=== PATIENT | male | born 1960 | race Caucasian/White ===

== ENCOUNTER 2017-03-01 06:31 | Day surgery (SDC) | payer BC ==
[2017-02-27 13:18] VITALS: BMI 31.1
[~2017-03-01 06:31] MED LIST: LACTATED RINGERS 1,000 ML IV SCH; SODIUM CHLORIDE 0.9% 1,000 ML IV SCH
[2017-03-01 06:52] VITALS: TEMP 97.8
[2017-03-01] MEDS ORDERED: MIDAZOLAM 2 MG/2 ML VIAL ONE (07:29)
[2017-03-01] MEDS ORDERED: LIDOCAINE 1% INJ 10MG/ML (20 ML MDV) ONE (07:29)
[2017-03-01] MEDS ORDERED: PROPOFOL 10 MG/ML 20 ML VIAL IV ONE (07:29)
[2017-03-01] MEDS ORDERED: BENZOCAINE SPRAY 1 CAN MUCOUS MEM ONE (07:32)
[2017-03-01] MEDS ORDERED: SODIUM CHLORIDE 0.9% 1,000 ML IV SCH (08:00)
[2017-03-01 08:46] VITALS: RESP 18
[2017-03-01] MEDS ORDERED: AMIODARONE 200 MG TAB PO STA (08:57)
[2017-03-01] MEDS ORDERED: AMIODARONE 200 MG TAB PO SCH (09:00)
[2017-03-01 09:28] VITALS: BP 110/60; PULSE 98
--- NOTE | 2017-03-01 10:52 | ECHOT ---
TRANSESOPHAGEAL ECHOCARDIOGRAM TRANSESOPHAGEAL ECHOCARDIOGRAM: INDICATION: Chronic atrial fibrillation. After obtaining informed consent, transesophageal echocardiogram was performed in left lateral position using an Omni plane probe. Local and IV sedation were obtained by the clinical esthetician. Patient tolerated the procedure well without any obvious immediate complications. FINDINGS: 1. There is no intracardiac thrombus within the left atrial appendage, left atrium, right atrium, or left ventricle. 2. Left ventricle appears mildly enlarged with diffuse global hypokinesis with severe LV dysfunction. 3. Left atrium appears mildly enlarged. 4. Right atrium, right ventricle are within normal limits. 5. Mitral valve shows mild mitral regurgitation. 6. Tricuspid valve shows mild tricuspid regurgitation. Aortic valve is a 3-leaflet valve. There is no evidence of stenosis or regurgitation. 7. Interatrial septum: There is no evidence of left to right shunt by color-flow Doppler or ccahp-[id number] shunt by agitated saline contrast study. 8. Spontaneous echo contrast is noted in the left atrium. CONCLUSIONS: 1. No intracardiac thrombus. 2. Severe LV systolic dysfunction. PLAN: We will proceed with cardioversion. MMODL / IJN: [id number] /
--- NOTE | 2017-03-07 04:15 | CE ---
CARDIAC ELECTROPHYSIOLOGY REPORT Cardioversion note. INDICATION: Chronic atrial fibrillation. After obtaining informed consent, electrical cardioversion was performed under sedation by the manager workers compensation. Patient received 300 joules of synchronized DC current following which he converted to sinus rhythm. The patient remained in sinus rhythm for about 5 minutes and then reverted back into atrial fibrillation. The plan was to start him on amiodarone and then attempt another cardioversion on him. MEIR / ZHANEN: [id number] /
== END 2017-03-01 09:37 | disposition home or self-care (01) ==
LOC: CATHCVL 06:31
PROVIDERS: ATTEND Internal Medicine Cardiovascular Disease
DX: I48.2 Chronic atrial fibrillation (principal); I08.1 Rheumatic disorders of both mitral and tricuspid valves; I42.0 Dilated cardiomyopathy; I25.10 Atherosclerotic heart disease of native coronary artery without angina pectoris; I11.0 Hypertensive heart disease with heart failure; I50.22 Chronic systolic (congestive) heart failure; E78.5 Hyperlipidemia, unspecified; Z79.01 Long term (current) use of anticoagulants; Z79.02 Long term (current) use of antithrombotics/antiplatelets; Z79.82 Long term (current) use of aspirin; Z79.899 Other long term (current) drug therapy
CPT/HCPCS: 93312; 93320; 93325; 92960; J2250; J2001; J2704

== ENCOUNTER → 2017-04-11 | Day surgery (SDC) | payer BC ==
[2017-04-06 14:16] VITALS: BMI 31.8
[~2017-04-11] MED LIST changes: +METOPROLOL TARTRATE 25 MG TAB PO SCH; +PROPOFOL 10 MG/ML 20 ML VIAL IV ONE
[2017-04-11 07:53] LABS: Calcium 9.6 mg/dL (8.4-10.2); Potassium 4.7 mmol/L (3.5-5.1)
[2017-04-11] MEDS: BENZOCAINE SPRAY 1 SPRAY CAN MUCOUS MEM ONE ×2 (07:56→08:14)
[2017-04-11 07:57] VITALS: RESP 16
[2017-04-11 09:31] VITALS: TEMP 97.6
[2017-04-11 09:56] VITALS: BP 92/70; PULSE 66
--- NOTE | 2017-04-11 10:01 | ECHOT ---
TRANSESOPHAGEAL ECHOCARDIOGRAM INDICATION: Chronic atrial fibrillation. TRANSESOPHAGEAL ECHO: After obtaining informed consent, transesophageal echocardiogram was performed in left lateral position using an Omniplane probe. Local and IV sedation were obtained by the student life dean. The patient tolerated the procedure well without any obvious immediate complications. FINDINGS: 1. There is no intracardiac thrombus within the left atrial appendage, left atrium, right atrium, right ventricular or left ventricle. 2. Left ventricle appears dilated shows diffuse global hypokinesis with severe LV systolic dysfunction with ejection fraction of around 25% to 30%. 3. Left atrium appears enlarged. 4. Right atrium and right ventricle appear mildly enlarged. 5. Mitral valve appears anatomically normal. There is mild mitral regurgitation noted. 6. Tricuspid valve shows mild tricuspid regurgitation. 7. Aortic valve is a 3-leaflet valve. There is no evidence of aortic stenosis or regurgitation. 8. There is no [id number]-zf-[id number] shunt across the interatrial septum. CONCLUSIONS: 1. Severe left ventricular systolic dysfunction. 2. No intracardiac thrombus. MMODL / IJN: [id number] /
--- NOTE | 2017-04-11 10:07 | CE ---
CARDIAC ELECTROPHYSIOLOGY REPORT CARDIOVERSION: INDICATION: Chronic atrial fibrillation. After obtaining informed consent, patient underwent electrical cardioversion by using initially with a 300 joules DC current and subsequently a 360 joules current. He converted to sinus rhythm at the end of second shock. The patient is adequately anticoagulated with Eliquis and had been on amiodarone. The plan at this stage is to follow him and see if his LV function improves. If it does not, then he will need EP evaluation and probably a cardiac catheterization. MEIR / ZHANEN: [id number] /
== END ==
LOC: CATHCVL 06:58
PROVIDERS: ATTEND Internal Medicine Cardiovascular Disease
DX: I48.2 Chronic atrial fibrillation (principal); I42.0 Dilated cardiomyopathy; I25.10 Atherosclerotic heart disease of native coronary artery without angina pectoris; I10 Essential (primary) hypertension; E07.9 Disorder of thyroid, unspecified; E78.5 Hyperlipidemia, unspecified; Z79.02 Long term (current) use of antithrombotics/antiplatelets; Z79.82 Long term (current) use of aspirin; Z79.899 Other long term (current) drug therapy; Z95.5 Presence of coronary angioplasty implant and graft; Z88.8 Allergy status to other drugs, medicaments and biological substances; Z91.018 Allergy to other foods; Z87.891 Personal history of nicotine dependence
CPT/HCPCS: 93312; 93320; 93325; 92960; 80048; J2704; 93005

== ENCOUNTER → 2017-06-14 | Outpatient (CLI) | payer BC | END | disposition home or self-care (01) | LOC: LABWHC1 16:31 | PROVIDERS: ATTEND Nurse Practitioner Adult Health | DX: E89.0 Postprocedural hypothyroidism (principal); I48.1 Persistent atrial fibrillation | CPT/HCPCS: 36415; 84443; 84450; 84460 ==

== ENCOUNTER → 2018-01-25 | Outpatient (CLI) | payer BC | LOC: LABWHC1 11:59 | PROVIDERS: ATTEND Nurse Practitioner Family | DX: E89.0 Postprocedural hypothyroidism (principal); Z12.5 Encounter for screening for malignant neoplasm of prostate | CPT/HCPCS: 84443; 36415; G0103 ==

== ENCOUNTER 2018-01-29 11:09 | Day surgery (SDC) | payer BC ==
[2018-01-28 13:23] VITALS: BMI 32.5
[~2018-01-29 11:09] MED LIST changes: +LIDOCAINE 1% 20 ML VIAL (10MG/ML) FOR IV START INTRADERMA PRN; -METOPROLOL TARTRATE 25 MG TAB PO SCH; -PROPOFOL 10 MG/ML 20 ML VIAL IV ONE; -SODIUM CHLORIDE 0.9% 1,000 ML IV SCH
[2018-01-29 12:22] VITALS: RESP 16; TEMP 97.2
[2018-01-29] MEDS ORDERED: PROPOFOL 10 MG/ML 20 ML VIAL IV ONE (13:45)
[2018-01-29] MEDS ORDERED: LIDOCAINE 1% INJ 10MG/ML (20 ML MDV) ONE (13:45)
--- NOTE | 2018-01-29 14:14 | P.PCN ---
Date of Procedure: 01/29/18 Procedure(s) Performed: Procedure: Colonoscopy and biopsy. Preoperative diagnosis: History of colitis. Postoperative diagnosis: 1. Sigmoid diverticulosis with no evidence of acute diverticulitis, strictures, polyps or cancer. 2. No evidence of active colitis. 3. Multiple biopsies obtained randomly from the colon. Preparation: HalfLytely prep. Sedation: Was provided by anesthesia. Brief clinical history: The patient is a 57-year-old male who was diagnosed with ulcerative colitis around age 50. The patient had a colonoscopy around 3 years ago. He has been maintained on Azulfidine 1.5 g daily. He described intermittent diarrhea. This evaluation is to screening for neoplasia, assess activity and guide therapy. Procedure: With the patient on his left lateral decubitus position and after informed consent and adequate sedation, the perianal area was inspected and it did not show any fissures or fistulas. There were no masses felt on digital rectal examination. The Olympus CFH 190L video colonoscope was then inserted in the rectum in the usual fashion and advanced to the cecum. The mucosa appeared healthy. No polyps or tumors were seen. Several diverticular orifices were seen scattered in the distal sigmoid but there was no evidence of acute diverticulitis or strictures. I obtained random biopsies from the colon then I retroflexed the endoscope in the rectum before the endoscope was withdrawn. The patient tolerated the procedure well. Plan: The patient was reassured. Discussed dietary measures. Will await biopsy results and make further plans based on his course and biopsy results. I will keep you updated on his progress.
[2018-01-29 14:44] VITALS: BP 105/75; PULSE 73
== END 2018-01-29 14:57 | disposition home or self-care (01) ==
LOC: ORWHC2ENDO 11:09
DX: K52.89 Other specified noninfective gastroenteritis and colitis (principal); K57.30 Diverticulosis of large intestine without perforation or abscess without bleeding; K21.9 Gastro-esophageal reflux disease without esophagitis; F17.200 Nicotine dependence, unspecified, uncomplicated; I25.10 Atherosclerotic heart disease of native coronary artery without angina pectoris; Z98.61 Coronary angioplasty status; I48.91 Unspecified atrial fibrillation; J44.9 Chronic obstructive pulmonary disease, unspecified; I11.0 Hypertensive heart disease with heart failure; I50.9 Heart failure, unspecified; M19.90 Unspecified osteoarthritis, unspecified site; E78.5 Hyperlipidemia, unspecified; N40.0 Benign prostatic hyperplasia without lower urinary tract symptoms; Z79.899 Other long term (current) drug therapy
CPT/HCPCS: 45380; J2001; J2704; 88305

== ENCOUNTER 2018-02-08 05:32 | Day surgery (SDC) | payer BC ==
[2018-02-05 13:25] VITALS: BMI 32.5
[~2018-02-08 05:32] MED LIST changes: +HEPARIN SODIUM,PORCINE 5,000 UNIT/ML 1 ML VIAL SQ ONE; +HYDROmorphone 0.5 MG/0.5 ML SYRINGE IVP PRN; +HYDROmorphone 1 MG/ML 1 ML SYRINGE IVP PRN; -LIDOCAINE 1% 20 ML VIAL (10MG/ML) FOR IV START INTRADERMA PRN; +MORPHINE SULFATE 2 MG/ML SYRINGE IV PRN; +ceFAZolin IN SWFI 2 GM/20 ML SYRINGE IVP ONE
[2018-02-08] MEDS ORDERED: LIDOCAINE 1% 20 ML VIAL (10MG/ML) FOR IV START INTRADERMA ONE (06:37)
[2018-02-08] MEDS ORDERED: DEXAMETHASONE SOD PHOSPHATE 10 MG/ML 1 ML VIAL IV ONE (06:54)
[2018-02-08] MEDS ORDERED: ONDANSETRON 4 MG/2 ML VIAL IVP ONE (06:54)
[2018-02-08] MEDS ORDERED: PROPOFOL 10 MG/ML 20 ML VIAL IV ONE (07:30)
[2018-02-08] MEDS ORDERED: GLYCOPYRROLATE 0.2 MG/ML 2 ML VIAL ONE (07:30)
[2018-02-08] MEDS ORDERED: SUCCINYLCHOLINE CHLORIDE 100 MG/5 ML SYR IV ONE (07:30)
[2018-02-08] MEDS ORDERED: INDOCYANINE GREEN 25 MG VIAL IV ONE (07:30)
[2018-02-08] MEDS ORDERED: fentaNYL (PF) 50 MCG/ML 2 ML AMP ONE (07:30)
[2018-02-08] MEDS ORDERED: MIDAZOLAM 2 MG/2 ML VIAL ONE (07:30)
[2018-02-08] MEDS ORDERED: ROCURONIUM BROMIDE 10 MG/ML 10 ML VIAL IV ONE (07:30)
[2018-02-08] MEDS ORDERED: NEOSTIGMINE 1 MG/ML 10 ML VIAL ONE (07:30)
[2018-02-08] MEDS ORDERED: LABETALOL 5 MG/ML VIAL MDV ONE (07:30)
[2018-02-08] MEDS ORDERED: LIDOCAINE 1% INJ 10MG/ML (20 ML MDV) ONE (07:30)
[2018-02-08] MEDS ORDERED: INDOCYANINE GREEN 25 MG VIAL IV STA (07:33)
--- NOTE | 2018-02-08 07:33 | P.GSHP ---
History of Present Illness H&P Date: 02/08/18 CHIEF COMPLAINT: Cholecystitis HISTORY OF PRESENT ILLNESS: The patient is a 57-year-old male who presents with history of epigastric including right upper quadrant abdominal pain. He underwent diagnostic studies for her gallbladder. Separately his clinical picture was consistent with cholecystitis. Now he presents for surgical intervention. PAST MEDICAL HISTORY: Please see list PAST SURGICAL HISTORY: Please see list MEDICATIONS: Please see list ALLERGIES: Denies. SOCIAL HISTORY: No illicit drug use or recent tobacco use FAMILY HISTORY: Pertinent for gallbladder disease REVIEW OF ORGAN SYSTEMS: CONSTITUTIONAL: No reports of fevers or chills. HEENT: Denies any troubles with the vision or hearing. ENDOCRINE: No reports of hypothyroidism. No diabetes. RESPIRATORY: No recent pneumonias. CARDIOVASCULAR: Denies chest pain or palpitations GI: No blood in stools or constipation. MUSCULOSKELETAL: Has occasional joint pain including back pain. NEURO: No seizure disorders or headaches. No recent stroke. PSYCH: No depression or suicidal ideation. GENITOURINARY: No active blood in urine. No urinary hesitancy. HEMATOLOGIC: No personal or family history of DVTs or pulmonary emboli. SKIN: No skin cancer. PHYSICAL EXAM: VITAL SIGNS: Afebrile vital signs stable GENERAL: Well-developed pleasant in no acute distress. HEENT: No scleral icterus. Extraocular movements grossly intact. Moist buccal mucosa. NECK: Supple without lymphadenopathy. CHEST: Unlabored respirations. Equal bilateral excursions. CARDIOVASCULAR: Regular rate regular rhythm rhythm. Distal 2+ pulses. ABDOMEN: Soft, nondistended. Tender along the epigastrium and right upper quadrant. MUSCULOSKELETAL: No clubbing, cyanosis, or edema. NEURO: Cranial nerves II to XII within normal limits. No focal or lateralizing signs. PSYCH: Alert and oriented to person, place and time. SKIN: Well-perfused good skin turgor. ASSESSMENT: 1. Epigastric and right upper quadrant abdominal pain 2. Chronic cholecystitis 3. Symptomatic gallstones. PLAN: 1. Will need a robotic cholecystectomy possible open. Benefits and risks were described. 2. Heparin for DVT prophylaxis 5000 units. 3. Antibiotic prophylaxis. Past Medical History Past Medical History: Atrial Fibrillation, Coronary Artery Disease (CAD), Heart Failure, GERD/Reflux, Hyperlipidemia, Hypertension, Myocardial Infarction ([place]), Osteoarthritis (OA), Prostate Disorder, Thyroid Disorder Additional Past Medical History / Comment(s): ulcerative COLITIS, gallstones, Last Myocardial Infarction Date:: 2011 History of Any Multi-Drug Resistant Organisms: None Reported Past Surgical History: Heart Catheterization With Stent, Hernia Repair, Orthopedic Surgery, Tonsillectomy Additional Past Surgical History / Comment(s): 2 Stents , chhaya Hip Surgery x 2 for dislocated hips Cindy Fundoplication Procedure, JAIME, Cardioversion Past Anesthesia/Blood Transfusion Reactions: No Reported Reaction Date of Last Stent Placement:: 2013 Smoking Status: Former smoker - Past Family History Father Family Medical History: Deep Vein Thrombosis (DVT), Pulmonary Embolus Additional Family Medical History / Comment(s): emphysema, hypothroid Mother Family Medical History: COPD, Diabetes Mellitus Additional Family Medical History / Comment(s): Colitis Medications and Allergies Home Medications Medication Instructions Recorded Confirmed Type Enalapril [Vasotec] 10 mg PO DAILY 01/29/17 02/08/18 History Esomeprazole Magnesium [NexIUM] 20 mg PO BID 01/29/17 02/08/18 History Simvastatin [Zocor] 40 mg PO HS 01/29/17 02/08/18 History Apixaban [Eliquis] 5 mg PO BID tab 02/01/17 02/08/18 Rx Naproxen [Naprosyn] 500 mg PO Q12HR tab 02/01/17 02/05/18 Rx Furosemide [Lasix] 20 mg PO DAILY 02/27/17 02/08/18 History Spironolactone [Aldactone] 25 mg PO DAILY 02/27/17 02/08/18 History Loratadine [Claritin] 10 mg PO DAILY 01/28/18 02/08/18 History Melatonin 10 mg PO HS 01/28/18 02/08/18 History Metoprolol Tartrate [Lopressor] 25 mg PO BID 01/28/18 02/08/18 History Multivitamins, Thera [Multivitamin 1 tab PO DAILY 01/28/18 02/05/18 History (formulary)] sulfaSALAzine [Azulfidine] 500 mg PO TID 01/28/18 02/08/18 History Levothyroxine Sodium [Synthroid] 150 mcg PO DAILY 02/05/18 02/08/18 History Allergies Allergy/AdvReac Type Severity Reaction Status Date / Time walnut Allergy Swelling Verified 02/05/18 13:13 aspirin AdvReac Rash/Hives Verified 02/05/18 13:13 povidone-iodine AdvReac Rash/Hives Verified 02/05/18 13:13 [From Betadine] soap [From Betadine] AdvReac Rash/Hives Verified 02/05/18 13:13 Surgical - Exam Vital Signs Temp Pulse Resp BP Pulse Ox 97.5 F L 95 16 119/81 96 02/08/18 06:26 02/08/18 06:26 02/08/18 06:26 02/08/18 06:26 02/08/18 06:26
[2018-02-08] MEDS ORDERED: BUPIVACAIN-EPI 0.25%-1:200,000 30 ML VIAL SQ ONE (08:01)
--- NOTE | 2018-02-08 08:51 | P.OP ---
Date of Procedure: 02/08/18 Description of Procedure: SURGEON: ADDY DUBON MD PREOPERATIVE DIAGNOSES: 1. Symptomatic gallstones 2. Chronic cholecystitis 3. Atrial fibrillation chronic 4. Congestive heart failure 5. Coronary artery disease 6. Previous history of myocardial infarction 7. Hypertensive cardiomyopathy 8. Ulcerative colitis 9. Gastroesophageal reflux disease 10. Hypothyroidism 11. Prostatic disorder 12. Hyperlipidemia 13. Obesity due to excess calories, BMI 32.5 POSTOPERATIVE DIAGNOSES: 1. Symptomatic gallstones 2. Chronic cholecystitis 3. Atrial fibrillation chronic 4. Congestive heart failure 5. Coronary artery disease 6. Previous history of myocardial infarction 7. Hypertensive cardiomyopathy 8. Ulcerative colitis 9. Gastroesophageal reflux disease 10. Hypothyroidism 11. Prostatic disorder 12. Hyperlipidemia 13. Obesity due to excess calories, BMI 32.5 14. Severe hepatomegaly OPERATION: Robotic-assisted da Gadiel Xi laparoscopic cholecystectomy, multiport with FIREFLY ESTIMATED BLOOD LOSS: 5 mL. SPECIMENS REMOVED: Gallbladder. COMPLICATIONS: None. OPERATIVE FINDINGS: 1. Chronic cholecystitis 2. Moderate to severe hepatomegaly adding complexity to the case of 15 minutes. 3. The cystic duct was dilated at 6 mm and resection of the gallbladder was distal to the infundibulum to prevent injury to the common bile duct INDICATIONS: The patient is a 57-year-old female who presents with cholelcystitis. Surgical intervention with a laparoscopic cholecystectomy was described at length including injury to the biliary tree, bleeding, infection, need for further surgery. Informed consent was obtained. Robotic assisted laparoscopic approach was described. Benefits and risks of the procedure including but not limited to bleeding, infection, injury to the biliary tree was described. Informed consent was obtained. DESCRIPTION OF PROCEDURE: Patient was brought to the operating room, placed in supine position. After general induction, the abdomen had been prepped and draped in standard sterile fashion. The robotic da Gadiel XI system was primed. After a timeout protocol was performed, the patient had been prepped and draped in standard sterile fashion. The patient was injected with indocyanine green. A 5 mm 0 degrees laparoscopic trocar entry was performed along the left upper quadrant. The abdomen insufflated to 15 mmHg pressure which was tolerated well. Diagnostic laparoscopy demonstrated no injury to bowel viscera or mesentery. The liver surface was unremarkable. Next, two 8 mm robotic ports were placed along the right upper abdomen. The camera 8-mm port was maintained along the epigastrium. Another 8 mm port was placed along the left upper abdominal wall after exchanging the 5 mm port. Please note that the ports were placed at least 10 to 15 cm away from the target anatomy of the gallbladder. The robot was docked along the left lateral abdomen. The patient was repositioned in reverse Trendelenburg position. Using a grasper for arm 3, a grasper for arm 4, including hook cautery for arm 1 , the robotic system was docked and primed as described. Instruments were interchanged by the catalog library assistant including hook cautery, Bovie cautery and clip appliers. I had sat at the console. The gallbladder fundus was retracted over the dome of the liver. Initial attention was brought to the infundibulum which was gently retracted in the inferior lateral approach. Using a grasper, the cystic duct including the cystic artery was carefully skeletonized. FIREFLY was used to identify the cystic artery and cystic structures. Large PLASTIC clips were used throughout the entire case. Using a clip chin strap cutter 2 clips were placed proximally, and 1 clip was placed distally along the cystic duct and then cauterized with the cautery. Again care was taken to avoid any injury to the biliary tree as the common bile duct was clearly visualized during this portion of dissection. Next, the cystic artery was similarly clipped and cauterized. Electro-Bovie cautery was used to remove the gallbladder from the hepatic fossa. Hemostasis was checked and found to be adequate. The robot was undocked. I re-scrubbed into the case. Using a 10 mm Endo Catch bag via the left upper quadrant incision, the specimen was removed from the abdominal cavity. All pneumoperitoneum instruments were evacuated from the abdominal cavity. The incisions were reapproximated using 4-0 Monocryl in an interrupted subcuticular fashion. Fascial defects were less than 8 mm in size. Please note along the trocar sites, local anesthetic was placed as a field block prior to insertion of all instruments. Liquid glue was applied to the skin. At the end of the procedure needle, sponge, and instrument count had been verified correct by the surgical attendant. The patient was transferred to postanesthesia care unit in stable condition. Intraoperative films were shared with the patient's family who were very pleased with the level of care. Console time 27 minutes Plan - Discharge Summary New Discharge Prescriptions: No Action Simvastatin [Zocor] 40 mg PO HS Enalapril [Vasotec] 10 mg PO DAILY Esomeprazole Magnesium [NexIUM] 20 mg PO BID Apixaban [Eliquis] 5 mg PO BID tab Naproxen [Naprosyn] 500 mg PO Q12HR tab Spironolactone [Aldactone] 25 mg PO DAILY Furosemide [Lasix] 20 mg PO DAILY Loratadine [Claritin] 10 mg PO DAILY Metoprolol Tartrate [Lopressor] 25 mg PO BID Multivitamins, Thera [Multivitamin (formulary)] 1 tab PO DAILY sulfaSALAzine [Azulfidine] 500 mg PO TID Melatonin 10 mg PO HS Levothyroxine Sodium [Synthroid] 150 mcg PO DAILY Discharge Medication List Enalapril [Vasotec] 10 mg PO DAILY 01/29/17 [History] Esomeprazole Magnesium [NexIUM] 20 mg PO BID 01/29/17 [History] Simvastatin [Zocor] 40 mg PO HS 01/29/17 [History] Apixaban [Eliquis] 5 mg PO BID tab 02/01/17 [Rx] Naproxen [Naprosyn] 500 mg PO Q12HR tab 02/01/17 [Rx] Furosemide [Lasix] 20 mg PO DAILY 02/27/17 [History] Spironolactone [Aldactone] 25 mg PO DAILY 02/27/17 [History] Loratadine [Claritin] 10 mg PO DAILY 01/28/18 [History] Melatonin 10 mg PO HS 01/28/18 [History] Metoprolol Tartrate [Lopressor] 25 mg PO BID 01/28/18 [History] Multivitamins, Thera [Multivitamin (formulary)] 1 tab PO DAILY 01/28/18 [History ] sulfaSALAzine [Azulfidine] 500 mg PO TID 01/28/18 [History] Levothyroxine Sodium [Synthroid] 150 mcg PO DAILY 02/05/18 [History]
[2018-02-08 08:56] VITALS: TEMP 96.8
[2018-02-08 10:31] VITALS: RESP 18
[2018-02-08 11:57] VITALS: BP 141/91; PULSE 78
== END 2018-02-08 12:37 | disposition home or self-care (01) ==
LOC: OR 05:32
PROVIDERS: ATTEND Surgery Plastic and Reconstructive Surgery
DX: K80.10 Calculus of gallbladder with chronic cholecystitis without obstruction (principal); I48.2 Chronic atrial fibrillation; I25.10 Atherosclerotic heart disease of native coronary artery without angina pectoris; I11.0 Hypertensive heart disease with heart failure; I43 Cardiomyopathy in diseases classified elsewhere; I50.9 Heart failure, unspecified; K21.9 Gastro-esophageal reflux disease without esophagitis; E78.5 Hyperlipidemia, unspecified; E03.9 Hypothyroidism, unspecified; I25.2 Old myocardial infarction; E66.9 Obesity, unspecified; Z68.32 Body mass index [BMI] 32.0-32.9, adult; M19.90 Unspecified osteoarthritis, unspecified site; N42.9 Disorder of prostate, unspecified; Z87.891 Personal history of nicotine dependence; Z79.01 Long term (current) use of anticoagulants; Z79.899 Other long term (current) drug therapy; Z88.6 Allergy status to analgesic agent; Z91.018 Allergy to other foods; Z91.048 Other nonmedicinal substance allergy status; Z91.09 Other allergy status, other than to drugs and biological substances; Z95.5 Presence of coronary angioplasty implant and graft
CPT/HCPCS: 88304; 88305; 47562; J2250; J1644; J1100; J2710; J2405; J2001; J3010; J2270; J1170; J0330; J2704; J0690

== ENCOUNTER → 2019-04-16 | Day surgery (SDC) | payer BC, OTHER ==
[2019-04-11 14:55] VITALS: BMI 33.2
[~2019-04-16] MED LIST changes: -HEPARIN SODIUM,PORCINE 5,000 UNIT/ML 1 ML VIAL SQ ONE; -HYDROmorphone 0.5 MG/0.5 ML SYRINGE IVP PRN; -HYDROmorphone 1 MG/ML 1 ML SYRINGE IVP PRN; -LACTATED RINGERS 1,000 ML IV SCH; +LIDOCAINE 1% INJ 10MG/ML (20 ML MDV) ONE; +MIDAZOLAM 2 MG/2 ML VIAL ONE; -MORPHINE SULFATE 2 MG/ML SYRINGE IV PRN; +PROPOFOL 10 MG/ML 20 ML VIAL IV ONE; +SODIUM CHLORIDE 0.9% 1,000 ML IV SCH; -ceFAZolin IN SWFI 2 GM/20 ML SYRINGE IVP ONE
[2019-04-16 08:42] VITALS: TEMP 97.8
[2019-04-16 09:03] LABS: Calcium 9.4 mg/dL (8.4-10.2); Potassium 4.1 mmol/L (3.5-5.1)
[2019-04-16] MEDS: BENZOCAINE SPRAY 1 CAN MUCOUS MEM ONE ×2 (09:30→10:05)
[2019-04-16 10:46] VITALS: RESP 16
[2019-04-16 11:53] VITALS: BP 104/75; PULSE 94
--- NOTE | 2019-04-16 12:08 | ECHOT ---
TRANSESOPHAGEAL ECHOCARDIOGRAM INDICATION: Persistent atrial fibrillation. PROCEDURE NOTE: After obtaining informed consent, transesophageal echocardiogram was performed in left lateral position using an Omni plane probe. Local and IV sedation were obtained by the computer engineering professor. The patient tolerated the procedure well without any obvious immediate complications. FINDINGS: 1. There is no intracardiac thrombus within the left atrial appendage, left atrium, right atrium, right ventricle. 2. Left ventricle appears enlarged, shows diffuse global hypokinesis with severe LV dysfunction with an ejection fraction of around 30%-35%. 3. Mitral valve appears anatomically normal. There is mild mitral regurgitation noted. 4. Aortic valve is free of stenosis or regurgitation. Aorta shows [id number] atherosclerotic changes. 5. There is mild tricuspid regurgitation. 6. Interatrial septum, there is no evidence of [id number] shunt by color-flow Doppler or [id number] shunt by agitated saline contrast study. CONCLUSIONS: 1. Severe LV dysfunction. 2. No evidence of intracardiac thrombus. PLAN: Patient will undergo cardioversion. CARDIOVERSION NOTE: After obtaining informed consent and making sure that the patient was adequately anticoagulated with Eliquis and ruling out intracardiac thrombus. Patient underwent cardioversion with single synchronized DC current of 300 joules. He converted to sinus rhythm and stayed in sinus rhythm. MMODL / IJN: [id number] /
== END ==
LOC: CATHCVL 08:14
PROVIDERS: ATTEND Internal Medicine Cardiovascular Disease
DX: I25.10 Atherosclerotic heart disease of native coronary artery without angina pectoris (principal); I48.21 Permanent atrial fibrillation; I08.1 Rheumatic disorders of both mitral and tricuspid valves; I70.0 Atherosclerosis of aorta; I25.2 Old myocardial infarction; I11.0 Hypertensive heart disease with heart failure; I50.22 Chronic systolic (congestive) heart failure; I42.0 Dilated cardiomyopathy; E07.9 Disorder of thyroid, unspecified; E66.9 Obesity, unspecified; E78.2 Mixed hyperlipidemia; Z91.041 Radiographic dye allergy status; Z88.6 Allergy status to analgesic agent; Z79.1 Long term (current) use of non-steroidal anti-inflammatories (NSAID); Z79.01 Long term (current) use of anticoagulants; Z79.890 Hormone replacement therapy; Z79.899 Other long term (current) drug therapy; Z90.49 Acquired absence of other specified parts of digestive tract; Z98.890 Other specified postprocedural states; Z72.0 Tobacco use; Z68.33 Body mass index [BMI] 33.0-33.9, adult
CPT/HCPCS: 93312; 93320; 93325; 92960; 80048; J2250; J2001; J2704

== ENCOUNTER 2020-09-04 15:47 | Observation (INO) | payer OTHER ==
[2020-09-04] MEDS ORDERED: HEPARIN SODIUM 1,000 UN/ML (10ML VL) IV PRN (16:57)
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
[2020-09-04] MEDS ORDERED: ACETAMINOPHEN TAB 325 MG TAB PO PRN (16:58)
[2020-09-04] MEDS ORDERED: NALOXONE 0.4 MG/ML 1 ML VIAL IV PRN (16:58)
[2020-09-04] MEDS ORDERED: PANTOPRAZOLE 40 MG/10 ML VIAL IV SCH (17:00)
[2020-09-04] MEDS ORDERED: HEPARIN SOD,PORK IN 0.45% NACL 25,000 UNIT in 0.45% NACL 1 250ML.BAG IV SCH (17:00)
[2020-09-04 17:09] LABS: Basophils % (A) 1 %; Eosinophils # (A) 0.1 k/uL (0-0.7); Eosinophils % (A) 2 %; HCT 40.2 % (39.0-53.0); HGB 14.3 gm/dL (13.0-17.5); Lymphocytes # (A) 0.7 k/uL (1.0-4.8); Lymphocytes % (A) 16 %; MCH 33.3 pg (25.0-35.0); MCHC 35.7 g/dL (31.0-37.0); MCV 93.3 fL (80.0-100.0); Mean Platelet Volume 7.9; Monocytes # (A) 0.3 k/uL (0-1.0); Monocytes % (A) 6 %; Neutrophils # (A) 3.3 k/uL (1.3-7.7); Neutrophils % (A) 74 %; Platelet Count 216 k/uL (150-450); RBC 4.31 m/uL (4.30-5.90); RDW 15.6 % (11.5-15.5); WBC 4.5 k/uL (3.8-10.6)
[2020-09-04 17:20] LABS: Albumin 3.7 g/dL (3.5-5.0); Calcium 9.1 mg/dL (8.4-10.2); Magnesium 1.7 mg/dL (1.6-2.3); Potassium 4.4 mmol/L (3.5-5.1); Total Bilirubin 0.5 mg/dL (0.2-1.3); Total Protein 6.1 g/dL (6.3-8.2)
[2020-09-04 17:21] LABS: Partial Thromboplastin Time 24.1 sec (22.0-30.0); Prothrombin Time 10.7 sec (9.0-12.0)
--- NOTE | 2020-09-04 19:26 | P.HPIM ---
History of Present Illness H&P Date: 09/04/20 Chief Complaint: Near syncope History of presenting complaint: This is a pleasant 59-year-old patient Dr. Schultz. Chronic stable medical conditions include coronary artery disease with stent, DVT, GERD, hyperlipidemia, osteoarthritis, hypothyroid, ulcerative colitis. Patient had a prior cardioversion. Patient has known atrial fibrillation. Patient was driving today when he developed hot flashes had started counting and with tunnel vision and patient broke into a perspiration. Patient pulled over. Patient had nearly passed out. No tongue biting or urinary incontinence. No focal weakness. No palpitation. No headache. No change in speech or swallowing. He went into [facility] where he was found to be in atrial fibrillation with a rapid ventricular rate of 170. Because of the cost eliquis cc's been off anticoagulation i.e. eliquis since April of this year. No chest pain. Patient's at the bedside. Review of systems: GEN.: None EYES: None HEENT: None NECK: None RESPIRATORY: As above CARDIOVASCULAR: As above GASTROINTESTINAL: None GENITOURINARY: None MUSCULOSKELETAL: None LYMPHATICS: None HEMATOLOGICAL: None PSYCHIATRY: None NEUROLOGICAL: None Past medical history to include: Atrial fibrillation, coronary artery disease, CHF, DVT in the left arm, GERD, , hyperlipidemia, osteoarthritis, prostate disorder, hypothyroid, ulcerative colitis, Cindy fundoplication Social history: Patient smoked for 27 years after 19 years ago. 3 packs a day. 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 EYES: Pupils equal. Conjunctiva normal. HEENT: External appearance of nose and ears normal, oral cavity grossly normal. NECK: JVD not raised; masses not palpable. HEART: Heart sounds irregular; no edema. LUNGS: Respiratory rate normal; clear to auscultation. ABDOMEN: Soft, nontender, liver spleen not palpable, no masses palpable. PSYCH: Alert and oriented x3; mood and affect normal. NEUROLOGICAL: Cranial nerves grossly intact; no facial asymmetry, power and sensation grossly intact. Musculoskeletal: Joints are grossly intact LYMPHATICS: No lymph nodes palpable in the axilla and neck INVESTIGATIONS, reviewed in the clinical context: WBC 4.5 hemoglobin 14.3 platelets 216 potassium 4.4 BUN 23 creatinine 1.11 Troponin I less than 0.012 Coronavirus [PCR]: Not detected EKG tracing personally reviewed by me-sinus rhythm Assessment and plan: -Paroxysmal atrial fibrillation, but the episode of rapid ventricular rate resulting in near syncope. Patient has been in and out of atrial fibrillation for a long time. Also has had cardioversions in the past. Currently back in s inus rhythm. -Anticoagulation for atrial fibrillation. Patient not been able to afford his eliquis. Currently started on IV heparin. We'll switch over to Lovenox until anticoagulation is determined based on financial evaluation. satellite manager to be consulted. -Coronary artery disease with stent On aspirin, Zocor, Lopressor, Vasotec -Chronic congestive heart failure EF not known-stable Continue Lasix, Aldactone, Vasotec -GERD Add Pepcid -Hyperlipidemia Zocor -Primary osteoarthritis Pain medications as needed -Hypothyroid Synthroid -Chronic ulcerative colitis Continue with Imuran -Chronic gout/hyperuricemia Continue allopurinol -Obesity BMI 31.6 Weight loss pressures We will use Lovenox due to patient's coverage for anticoagulations is determined. Cardiology consulted. Telemetry. Care was discussed with the patient and at the bedside Past Medical History Past Medical History: Atrial Fibrillation, Coronary Artery Disease (CAD), Heart Failure, Deep Vein Thrombosis (DVT), GERD/Reflux, Hyperlipidemia, Myocardial Infarction (SC), Osteoarthritis (OA), Pneumonia, Prostate Disorder, Thyroid Disorder Additional Past Medical History / Comment(s): Ulcerative COLITIS. Gallstones. HX DVT LT ARM. Last Myocardial Infarction Date:: 2011 History of Any Multi-Drug Resistant Organisms: None Reported Past Surgical History: Cholecystectomy, Heart Catheterization With Stent, Hernia Repair, Orthopedic Surgery, Tonsillectomy Additional Past Surgical History / Comment(s): total two cardiac stents, chhaya Hip Surgery x 3 for dislocated hips. Cindy Fundoplication JAIME, Cardioversion. COLONOSCOPY Past Anesthesia/Blood Transfusion Reactions: Motion Sickness Date of Last Stent Placement:: 2013 Past Psychological History: No Psychological Hx Reported Smoking Status: Former smoker Past Alcohol Use History: Rare Past Drug Use History: None Reported - Past Family History Father Family Medical History: Deep Vein Thrombosis (DVT), Pulmonary Embolus Additional Family Medical History / Comment(s): . Mother Family Medical History: COPD, Diabetes Mellitus Additional Family Medical History / Comment(s): Colitis Medications and Allergies Home Medications Medication Instructions Recorded Confirmed Type Esomeprazole Magnesium [NexIUM] 20 mg PO BID 01/29/17 09/04/20 History Simvastatin [Zocor] 40 mg PO DAILY 01/29/17 09/04/20 History Melatonin 10 mg PO DAILY 01/28/18 09/04/20 History Metoprolol Tartrate [Lopressor] 25 mg PO BID 01/28/18 09/04/20 History Enalapril [Vasotec] 5 mg PO DAILY 10/10/19 09/04/20 History Furosemide [Lasix] 20 mg PO DAILY 10/10/19 09/04/20 History Spironolactone [Aldactone] 25 mg PO DAILY 10/10/19 09/04/20 History Aspirin 325 mg PO DAILY 09/04/20 09/04/20 History Celecoxib [CeleBREX] 100 mg PO DAILY 09/04/20 09/04/20 History Cetirizine HCl [Zyrtec] 10 mg PO DAILY 09/04/20 09/04/20 History Levothyroxine Sodium [Synthroid] 175 mcg PO DAILY 09/04/20 09/04/20 History allopurinoL [Zyloprim] 100 mg PO DAILY 09/04/20 09/04/20 History azaTHIOprine [Imuran] 50 mg PO DAILY 09/04/20 09/04/20 History Allergies Allergy/AdvReac Type Severity Reaction Status Date / Time aspirin Allergy Rash/Hives Verified 09/04/20 18:27 povidone-iodine Allergy Rash/Hives Verified 09/04/20 18:27 [From Betadine] soap [From Betadine] Allergy Rash/Hives Verified 09/04/20 18:27 walnut Allergy Swelling Verified 09/04/20 18:27 hydromorphone AdvReac "unable to Verified 09/04/20 18:27 urinate for days" Physical Exam Vitals: Vital Signs Temp Pulse Resp BP Pulse Ox 09/04/20 17:40 80 18 122/72 97 09/04/20 16:00 98.1 F 68 18 107/68 98 Intake and Output 09/04/20 09/04/20 09/04/20 06:59 14:59 22:59 Other: Weight 105.687 kg Results CBC & Chem 7: 09/04/20 16:59 09/04/20 16:59 Labs: Abnormal Lab Results - Last 24 Hours (Table) 09/04/20 09/04/20 Range/Units 16:59 16:59 RDW 15.6 H (11.5-15.5) % Lymphocytes # 0.7 L (1.0-4.8) k/uL Chloride 112 H (98-107) mmol/L Carbon Dioxide 19 L (22-30) mmol/L BUN 23 H (9-20) mg/dL Glucose 167 H (74-99) mg/dL Total Protein 6.1 L (6.3-8.2) g/dL
[2020-09-04 19:50] VITALS: RESP 16
[2020-09-04] MEDS: METOPROLOL TARTRATE 25 MG TAB PO SCH (20:29)
[2020-09-04] MEDS: FAMOTIDINE 20 MG TAB PO SCH (20:29)
[2020-09-04] MEDS: PANTOPRAZOLE 40 MG TABLET PO SCH (20:29)
[2020-09-04] MEDS: sulfaSALAzine 500 MG TAB PO SCH (20:30)
[2020-09-04] MEDS: ENOXAPARIN 100 MG/ML SYRINGE SQ SCH ×2 (20:37→21:58)
[2020-09-04] MEDS ORDERED: ATORVASTATIN 20 MG TAB PO SCH (21:00)
[2020-09-04] MEDS ORDERED: MELATONIN 5 MG TABLET PO SCH (21:00)
[2020-09-05] MEDS ORDERED: LEVOTHYROXINE 75 MCG TAB PO SCH (06:30)
[2020-09-05 07:45] VITALS: BP 106/72; PULSE 61; TEMP 97.6
[2020-09-05] MEDS ORDERED: lisinopriL 10 MG TAB PO SCH (09:00)
[2020-09-05] MEDS ORDERED: FUROSEMIDE 20 MG TAB PO SCH (09:00)
[2020-09-05] MEDS ORDERED: SPIRONOLACTONE 25 MG TAB PO SCH (09:00)
[2020-09-05] MEDS ORDERED: AMIODARONE 200 MG TAB PO SCH (09:00)
[2020-09-05 09:25] LABS: Basophils # (A) 0.02 X 10*3/uL (0.00-0.10); Basophils % (A) 0.4 %; Eosinophils # (A) 0.21 X 10*3/uL (0.04-0.35); Eosinophils % (A) 4.4 %; HCT 39.9 % (39.6-50.0); HGB 13.5 g/dL (13.0-17.0); Lymphocytes # (A) 0.89 X 10*3/uL (0.90-5.00); Lymphocytes % (A) 18.8 %; MCH 32.4 pg (27.0-32.0); MCHC 33.8 g/dL (32.0-37.0); MCV 95.7 fL (80.0-97.0); Mean Platelet Volume 10.5 fL (9.5-12.2); Monocytes # (A) 0.58 X 10*3/uL (0.20-1.00); Monocytes % (A) 12.2 %; Neutrophils # (A) 3.03 X 10*3/uL (1.80-7.70); Platelet Count 206 X 10*3/uL (140-440); RBC 4.17 X 10*6/uL (4.40-5.60); RDW 15.4 % (11.5-14.5); WBC 4.74 X 10*3/uL (4.50-10.00)
[2020-09-05] MEDS: FAMOTIDINE 20 MG TAB PO SCH (09:53)
[2020-09-05] MEDS: METOPROLOL TARTRATE 25 MG TAB PO SCH (09:53)
[2020-09-05] MEDS: PANTOPRAZOLE 40 MG TABLET PO SCH (09:53)
[2020-09-05] MEDS: ENOXAPARIN 100 MG/ML SYRINGE SQ SCH (09:55)
[2020-09-05] MEDS: sulfaSALAzine 500 MG TAB PO SCH (09:55)
[2020-09-05 11:04] LABS: INR 0.99 (0.90-1.11); Prothrombin Time 10.8 sec (9.9-11.9)
--- NOTE | 2020-09-05 11:32 | P.CRDCN ---
History of Present Illness Consult date: 09/05/20 History of present illness: HISTORY OF PRESENT ILLNESS: This is a 59-year-old male with a past medical history significant for hypertension, hyperlipidemia, paroxysmal atrial fibrillation, cardioversion 2, and coronary artery disease with previous stent placement 2, last in 2013 per patient. Patient follows in the office with Dr. Godfrey. We have been asked to see the patient in consultation for A. fib with RVR. Patient examined at the [facility]. Patient states yesterday he was driving in his car when he began to have tunnel vision. He states that he pulled over to the side of the road. He denied feeling any shortness of breath or chest pain at that time. He does not remember feeling palpitations. He states he waited for about 5 minutes and started to feel a little better so he drove himself to [facility]. Patient was found to be in A. fib with RVR. Patient was transferred to [facility] for further evaluation. The time of examination, the patient is maintaining sinus mechanism with heart rate in the 60s. Patient states he was prescribed Eliquis however he cannot afford this medication due to his insurance deductible. Patient states he discussed Coumadin with his agricultural equipment operator who told him the cost would probably be the same with his INR monitoring. Patient states he applied for the patient assistance program but was told he made to much money and was unable to receive any financial assistance. Patient reports taking a full dose aspirin daily. EKG reveals sinus mechanism with PVCs Laboratory data: WBC 4.5. Hemoglobin 14.3. Platelet count 216. Sodium 139. Potassium 4.4. BUN 23. Creatinine 1.11. Troponin negative 1. Current home cardiac medications include aspirin 325 mg daily, Aldactone 25 mg daily, simvastatin to 40 mg daily, metoprolol tartrate 25 mg twice a day, Lasix 20 mg daily, enalapril 5 mg daily Most recent echocardiogram obtained 2017 reveals ejection fraction 20-25%, mild mitral regurgitation, mild tricuspid regurgitation. JAIME in 2019 reveals ejection fraction 30-35% REVIEW OF SYSTEMS: At the time of my exam: CONSTITUTIONAL: Denies fever or chills. HEENT: Denies blurred vision, vision changes, or eye pain. Denies hemoptysis CARDIOVASCULAR: Denies chest pain. Denies orthopnea. Denies PND. Denies palpitations RESPIRATORY: Denies shortness of breath. GASTROINTESTINAL: Denies abdominal pain. Denies nausea or vomiting. HEMATOLOGIC: Denies bleeding disorders. GENITOURINARY: Denies any blood in urine. SKIN: Denies pruitis. Denies rash. PHYSICAL EXAM: VITAL SIGNS: Reviewed. GENERAL: Well-developed in no acute distress. HEENT: Head is normocephalic. Pupils are equal, round. Sclerae anicteric. Mucous membranes of the mouth are moist. Neck supple. No JVD or thyromegaly LUNGS: Respirations even and unlabored. Lungs essentially clear to auscultation bilaterally. HEART: Regular rate and rhythm. S1 and S2 heard. ABDOMEN: Soft. Nondistended. Nontender. EXTREMITIES: Normal range of motion. No clubbing or cyanosis. Peripheral pulses intact. No lower extremity edema NEUROLOGIC: Awake and alert. Oriented x 3. ASSESSMENT: Paroxysmal atrial fibrillation with RVR History of cardioversion 2 Coronary artery disease with previous PCI 2 Ischemic cardiomyopathy, ejection fraction 30-35% per JAIME in 2019 Hypertension Hyperlipidemia PLAN: Patient states he is unable to afford anticoagulation and does not qualify for patient assistance program. Patient to further discuss anticoagulation with Dr. Godfrey at his follow up appointment Continue current cardiac medications Further recommendations pending patient course Nurse practitioner note has been reviewed by physician. Signing provider agrees with the documented findings, assessment, and plan of care. Past Medical History Past Medical History: Atrial Fibrillation, Coronary Artery Disease (CAD), Heart Failure, Deep Vein Thrombosis (DVT), GERD/Reflux, Hyperlipidemia, Myocardial Infarction (SD), Osteoarthritis (OA), Pneumonia, Prostate Disorder, Thyroid Disorder Additional Past Medical History / Comment(s): Ulcerative COLITIS. Gallstones. HX DVT LT ARM. Last Myocardial Infarction Date:: 2011 History of Any Multi-Drug Resistant Organisms: None Reported Past Surgical History: Cholecystectomy, Heart Catheterization With Stent, Hernia Repair, Orthopedic Surgery, Tonsillectomy Additional Past Surgical History / Comment(s): total two cardiac stents, chhaya Hip Surgery x 3 for dislocated hips. Cindy Fundoplication, JAIME, Cardioversionx3. COLONOSCOPY, barrets esophagus with hiatal hernia repair. right ankle b roken,gout.covid +first week of february 2020. moderna shots completed jul 24 2020 Past Anesthesia/Blood Transfusion Reactions: Motion Sickness Date of Last Stent Placement:: 2013 Past Psychological History: No Psychological Hx Reported Smoking Status: Former smoker Past Alcohol Use History: Rare Additional Past Alcohol Use History / Comment(s): QUIT SMOKING 2000, smoked age 13 to 40, 3 PPD. Past Drug Use History: None Reported Additional Drug Use History / Comment(s): CBD oil - Past Family History Father Family Medical History: Deep Vein Thrombosis (DVT), Pulmonary Embolus Additional Family Medical History / Comment(s): . Mother Family Medical History: COPD, Diabetes Mellitus Additional Family Medical History / Comment(s): Colitis Medications and Allergies Home Medications Medication Instructions Recorded Confirmed Type Esomeprazole Magnesium [NexIUM] 20 mg PO BID 01/29/17 09/04/20 History Simvastatin [Zocor] 40 mg PO DAILY 01/29/17 09/04/20 History Melatonin 10 mg PO DAILY 01/28/18 09/04/20 History Metoprolol Tartrate [Lopressor] 25 mg PO BID 01/28/18 09/04/20 History Enalapril [Vasotec] 5 mg PO DAILY 10/10/19 09/04/20 History Furosemide [Lasix] 20 mg PO DAILY 10/10/19 09/04/20 History Spironolactone [Aldactone] 25 mg PO DAILY 10/10/19 09/04/20 History Aspirin 325 mg PO DAILY 09/04/20 09/04/20 History Celecoxib [CeleBREX] 100 mg PO DAILY 09/04/20 09/04/20 History Cetirizine HCl [Zyrtec] 10 mg PO DAILY 09/04/20 09/04/20 History Levothyroxine Sodium [Synthroid] 175 mcg PO DAILY 09/04/20 09/04/20 History allopurinoL [Zyloprim] 100 mg PO DAILY 09/04/20 09/04/20 History azaTHIOprine [Imuran] 50 mg PO DAILY 09/04/20 09/04/20 History Allergies Allergy/AdvReac Type Severity Reaction Status Date / Time aspirin Allergy Rash/Hives Verified 09/04/20 18:27 povidone-iodine Allergy Rash/Hives Verified 09/04/20 18:27 [From Betadine] soap [From Betadine] Allergy Rash/Hives Verified 09/04/20 18:27 walnut Allergy Swelling Verified 09/04/20 18:27 hydromorphone AdvReac "unable to Verified 09/04/20 18:27 urinate for days" Physical Exam Vitals: Vital Signs Temp Pulse Pulse Resp BP BP Pulse Ox 09/05/20 07:10 97.6 F 61 16 106/72 94 L 09/05/20 00:56 97.4 F L 69 16 99/70 94 L 09/04/20 18:57 97.7 F 61 16 104/62 94 L 09/04/20 17:40 80 18 122/72 97 09/04/20 16:00 98.1 F 68 18 107/68 98 Intake and Output 09/04/20 09/05/20 09/05/20 22:59 06:59 14:59 Intake Total 43.825 Balance 43.825 Intake: Intake, IV Titration 43.825 Amount Heparin Sod,Pork in 0.45% 43.825 NaCl 25,000 unit In 0.45 % NaCl 1 250ml.bag @ 9.46 UNITS/KG/HR 9.998 mls/hr IV .Q24H [facility] Rx#: [id number] Other: Voiding Method Toilet # Voids 2 Weight 105.687 kg Results 09/04/20 16:59 09/04/20 16:59 Cardiac Enzymes 09/04/20 09/04/20 Range/Units 16:59 16:59 AST 27 (17-59) U/L Troponin I <0.012 (0.000-0.034) ng/mL Coagulation 09/04/20 Range/Units 16:59 PT 10.7 (9.0-12.0) sec APTT 24.1 (22.0-30.0) sec CBC 09/04/20 Range/Units 16:59 WBC 4.5 (3.8-10.6) k/uL RBC 4.31 (4.30-5.90) m/uL Hgb 14.3 (13.0-17.5) gm/dL Hct 40.2 (39.0-53.0) % Plt Count 216 (150-450) k/uL Comprehensive Metabolic Panel 09/04/20 Range/Units 16:59 Sodium 139 (137-145) mmol/L Potassium 4.4 (3.5-5.1) mmol/L Chloride 112 H (98-107) mmol/L Carbon Dioxide 19 L (22-30) mmol/L BUN 23 H (9-20) mg/dL Creatinine 1.11 (0.66-1.25) mg/dL Glucose 167 H (74-99) mg/dL Calcium 9.1 (8.4-10.2) mg/dL AST 27 (17-59) U/L ALT 16 (4-49) U/L Alkaline Phosphatase 86 (38-126) U/L Total Protein 6.1 L (6.3-8.2) g/dL Albumin 3.7 (3.5-5.0) g/dL Current Medications Generic Name Dose Route Start Last Admin Trade Name Freq PRN Reason Stop Dose Admin Acetaminophen 650 mg 09/04/20 16:58 Acetaminophen Tab 325 Mg Tab PO Q6HR PRN Mild Pain or Fever > 100.5 Amiodarone HCl 200 mg 09/05/20 09:00 Amiodarone 200 Mg Tab PO DAILY EDU Atorvastatin Calcium 20 mg 09/04/20 21:00 09/04/20 20:29 Atorvastatin 20 Mg Tab PO 20 mg HS EDU Administration Enoxaparin Sodium 100 mg 09/04/20 21:00 09/04/20 21:58 Enoxaparin 100 Mg/Ml Syringe SQ Not Given Q12HR EDU Famotidine 20 mg 09/04/20 21:00 09/04/20 20:29 Famotidine 20 Mg Tab PO 20 mg BID EDU Administration Furosemide 20 mg 09/05/20 09:00 Furosemide 20 Mg Tab PO DAILY EDU Levothyroxine Sodium 150 mcg 09/05/20 06:30 Levothyroxine 75 [place] 0630 EDU Lisinopril 10 mg 09/05/20 09:00 Lisinopril 10 Mg Tab PO DAILY EDU Melatonin 10 mg 09/04/20 21:00 09/04/20 20:29 Melatonin 5 Mg Tablet PO 10 mg HS EDU Administration Metoprolol Tartrate 25 mg 09/04/20 21:00 09/04/20 20:29 Metoprolol Tartrate 25 Mg Tab PO 25 mg BID EDU Administration Naloxone HCl 0.2 mg 09/04/20 16:58 Naloxone 0.4 Mg/Ml 1 Ml Vial IV Q2M PRN Opioid Reversal Pantoprazole Sodium 40 mg 09/04/20 21:00 09/04/20 20:29 Pantoprazole 40 Mg Tablet PO 40 mg BID EDU Administration Spironolactone 25 mg 09/05/20 09:00 Spironolactone 25 Mg Tab PO DAILY EDU Sulfasalazine 500 mg 09/04/20 21:00 09/04/20 20:30 Sulfasalazine 500 Mg Tab PO 12/12/20 21:01 500 mg BID EDU Administration Intake and Output 09/04/20 09/05/20 09/05/20 22:59 06:59 14:59 Intake Total 43.825 Balance 43.825 Intake: Intake, IV Titration 43.825 Amount Heparin Sod,Pork in 0.45% 43.825 NaCl 25,000 unit In 0.45 % NaCl 1 250ml.bag @ 9.46 UNITS/KG/HR 9.998 mls/hr IV .Q24H [facility] Rx#: [id number] Other: Voiding Method Toilet # Voids 2 Weight 105.687 kg 09/04/20 16:59 09/04/20 16:59
--- NOTE | 2020-09-05 15:54 | P.DS ---
Providers Date of admission: 09/04/20 17:02 Expected date of discharge: 09/05/20 Attending physician: Niraj Zamorano Consults: 09/04/20 16:58 Consult Physician Routine Consulting Provider: Boone Godfrey Consult Reason/Comments: A. fib with RVR, near-syncope Do you want consulting provider notified?: Yes 09/05/20 10:28 Consult Physician Routine Consulting Provider: Giovani Paul Consult Reason/Comments: acute low back pain -radiculopathy Do you want consulting provider notified?: Yes Primary care physician: [facility] Course: Chief Complaint: Near syncope History of presenting complaint: This is a pleasant 59-year-old patient Dr. Schultz. Chronic stable medical conditions include coronary artery disease with stent, DVT, GERD, hyp erlipidemia, osteoarthritis, hypothyroid, ulcerative colitis. Patient had a prior cardioversion. Patient has known atrial fibrillation. Patient was driving today when he developed hot flashes had started counting and with tunnel vision and patient broke into a perspiration. Patient pulled over. Patient had nearly passed out. No tongue biting or urinary incontinence. No focal weakness. No palpitation. No headache. No change in speech or swallowing. He went into [facility] where he was found to be in atrial fibrillation with a rapid ventricular rate of 170. Because of the cost eliquis cc's been off anticoagulation i.e. eliquis since April of this year. No chest pain. Patient's at the bedside. Patient admitted. Remained in sinus rhythm. Today: Comfortable. Seen by Dr. YAIR Chew. Discharged on amiodarone and Lopressor. Patient follow-up with his mine inspector.. Feeling well. Eliquis was prescribed Consultation: Dr. YAIR Chew/cardiology Past medical history to include: Atrial fibrillation, coronary artery disease, CHF, DVT in the left arm, GERD, , hyperlipidemia, osteoarthritis, prostate disorder, hypothyroid, ulcerative colitis, Cindy fundoplication Social history: Patient smoked for 27 years after 19 years ago. 3 packs a day. 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 EYES: Pupils equal. Conjunctiva normal. NECK: JVD not raised; masses not palpable. HEART: Heart sounds irregular; no edema. LUNGS: Respiratory rate normal; clear to auscultation. ABDOMEN: Soft, nontender, liver spleen not palpable, no masses palpable. PSYCH: Alert and oriented x3; mood and affect normal. NEUROLOGICAL: Cranial nerves grossly intact; no facial asymmetry, power and sensation grossly intact. INVESTIGATIONS, reviewed in the clinical context: September 05: WBC 4.7 hemoglobin 13.5 WBC 4.5 hemoglobin 14.3 platelets 216 potassium 4.4 BUN 23 creatinine 1.11 Troponin I less than 0.012 Coronavirus [PCR]: Not detected EKG tracing personally reviewed by me-sinus rhythm Assessment and plan: -Paroxysmal atrial fibrillation, but the episode of rapid ventricular rate resulting in near syncope. Patient has been in and out of atrial fibrillation for a long time. Also has had cardioversions in the past. Currently back in sinus rhythm. -Anticoagulation for atrial fibrillation. Patient not been able to afford his eliquis. Was started on IV heparin. Discharged on eliquis -Coronary artery disease with stent On aspirin, Zocor, Lopressor, Vasotec -Chronic congestive heart failure EF not known-stable Continue Lasix, Aldactone, Vasotec -GERD Add Pepcid -Hyperlipidemia Zocor -Primary osteoarthritis Pain medications as needed -Hypothyroid Synthroid -Chronic ulcerative colitis Continue with Imuran -Chronic gout/hyperuricemia Continue allopurinol -Obesity BMI 31.6 Weight loss pressures Disposition: Home Patient Condition at Discharge: Stable Plan - Discharge Summary New Discharge Prescriptions: New Apixaban [Eliquis] 5 mg PO BID #60 tab sulfaSALAzine [Azulfidine] 500 mg PO BID tab Aspirin 81 mg PO DAILY #1 chewable Amiodarone [Cordarone] 200 mg PO DAILY #30 tab Continue Simvastatin [Zocor] 40 mg PO DAILY Esomeprazole Magnesium [NexIUM] 20 mg PO BID Melatonin 10 mg PO DAILY Enalapril [Vasotec] 5 mg PO DAILY Furosemide [Lasix] 20 mg PO DAILY Spironolactone [Aldactone] 25 mg PO DAILY azaTHIOprine [Imuran] 50 mg PO DAILY allopurinoL [Zyloprim] 100 mg PO DAILY Celecoxib [CeleBREX] 100 mg PO DAILY Levothyroxine Sodium [Synthroid] 175 mcg PO DAILY Changed Metoprolol Tartrate [Lopressor] 25 mg PO TID #90 Discontinued Aspirin 325 mg PO DAILY Cetirizine HCl [Zyrtec] 10 mg PO DAILY Discharge Medication List Esomeprazole Magnesium [NexIUM] 20 mg PO BID 01/29/17 [History] Simvastatin [Zocor] 40 mg PO DAILY 01/29/17 [History] Melatonin 10 mg PO DAILY 01/28/18 [History] Enalapril [Vasotec] 5 mg PO DAILY 10/10/19 [History] Furosemide [Lasix] 20 mg PO DAILY 10/10/19 [History] Spironolactone [Aldactone] 25 mg PO DAILY 10/10/19 [History] Celecoxib [CeleBREX] 100 mg PO DAILY 09/04/20 [History] Levothyroxine Sodium [Synthroid] 175 mcg PO DAILY 09/04/20 [History] allopurinoL [Zyloprim] 100 mg PO DAILY 09/04/20 [History] azaTHIOprine [Imuran] 50 mg PO DAILY 09/04/20 [History] Amiodarone [Cordarone] 200 mg PO DAILY #30 tab 09/05/20 [Rx] Apixaban [Eliquis] 5 mg PO BID #60 tab 09/05/20 [Rx] Aspirin 81 mg PO DAILY #1 chewable 09/05/20 [Rx] Metoprolol Tartrate [Lopressor] 25 mg PO TID #90 09/05/20 [Rx] sulfaSALAzine [Azulfidine] 500 mg PO BID tab 09/05/20 [Rx] Follow up Appointment(s)/Referral(s): Chaparro Schultz MD [Primary Care Provider] - 1-2 days Boone Godfrey MD [STAFF PHYSICIAN] - 1 Week Patient Instructions/Handouts: A-fib (Atrial Fibrillation) (DC) Discharge/Stand Alone Forms: Work/School Release / Restrict
[2020-09-05] MEDS ORDERED: APIXABAN 5 MG TAB PO SCH (21:00)
[2020-09-06] MEDS ORDERED: METOPROLOL TARTRATE 50 MG TAB PO SCH (09:00)
[2020-09-06] MEDS ORDERED: METOPROLOL TARTRATE 25 MG TAB PO SCH (16:00)
== END 2020-09-05 12:35 | disposition home or self-care (01) ==
LOC: EC 15:47 → 6NMEDSUR 17:02
PROVIDERS: ADMIT Hospitalist; ATTEND Hospitalist
DX: I48.0 Paroxysmal atrial fibrillation (principal); R55 Syncope and collapse; T45.516A Underdosing of anticoagulants, initial encounter; Z91.120 Patient's intentional underdosing of medication regimen due to financial hardship; I25.10 Atherosclerotic heart disease of native coronary artery without angina pectoris; Z95.5 Presence of coronary angioplasty implant and graft; I11.0 Hypertensive heart disease with heart failure; I50.9 Heart failure, unspecified; K51.90 Ulcerative colitis, unspecified, without complications; E03.9 Hypothyroidism, unspecified; K21.9 Gastro-esophageal reflux disease without esophagitis; E78.5 Hyperlipidemia, unspecified; M19.91 Primary osteoarthritis, unspecified site; M1A.9XX0 Chronic gout, unspecified, without tophus (tophi); E66.9 Obesity, unspecified; Z68.31 Body mass index [BMI] 31.0-31.9, adult; I49.3 Ventricular premature depolarization; I25.5 Ischemic cardiomyopathy; R00.2 Palpitations; R06.00 Dyspnea, unspecified; N42.9 Disorder of prostate, unspecified; I25.2 Old myocardial infarction; Z86.16 Personal history of COVID-19; Z87.891 Personal history of nicotine dependence; Z86.718 Personal history of other venous thrombosis and embolism; Z87.19 Personal history of other diseases of the digestive system; Z87.01 Personal history of pneumonia (recurrent); Z90.49 Acquired absence of other specified parts of digestive tract; Z79.899 Other long term (current) drug therapy; Z79.82 Long term (current) use of aspirin; Z79.1 Long term (current) use of non-steroidal anti-inflammatories (NSAID); Z79.890 Hormone replacement therapy; Z88.6 Allergy status to analgesic agent; Z88.5 Allergy status to narcotic agent; Z91.018 Allergy to other foods; Z91.048 Other nonmedicinal substance allergy status; Z83.2 Family history of diseases of the blood and blood-forming organs and certain disorders involving the immune mechanism; Z82.49 Family history of ischemic heart disease and other diseases of the circulatory system; Z82.5 Family history of asthma and other chronic lower respiratory diseases; Z83.3 Family history of diabetes mellitus; Z83.79 Family history of other diseases of the digestive system
CPT/HCPCS: 96376; 96366; 96365; 96375; 99285; 36415; 93005; 84439; 80053; 84443; 83735; 84484; 85025 ×2; 85610 ×2; 85730; 87635; G0378 ×2; J1650; C9113; J1644

== ENCOUNTER 2020-11-25 11:43 | Day surgery (SDC) | payer OTHER ==
[2020-11-24 09:48] VITALS: BMI 32.5
[~2020-11-25 11:43] MED LIST changes: +LACTATED RINGERS 1,000 ML IV SCH; -LIDOCAINE 1% INJ 10MG/ML (20 ML MDV) ONE; -MIDAZOLAM 2 MG/2 ML VIAL ONE; -PROPOFOL 10 MG/ML 20 ML VIAL IV ONE; -SODIUM CHLORIDE 0.9% 1,000 ML IV SCH
[2020-11-25] MEDS ORDERED: SODIUM CHLORIDE 0.9% 1,000 ML IV ONE (12:00)
[2020-11-25 12:25] LABS: Basophils % (A) 1 %; Eosinophils # (A) 0.2 k/uL (0-0.7); Eosinophils % (A) 3 %; HCT 46.7 % (39.0-53.0); Lymphocytes # (A) 0.9 k/uL (1.0-4.8); Lymphocytes % (A) 17 %; MCH 35.6 pg (25.0-35.0); MCHC 36.3 g/dL (31.0-37.0); MCV 98.3 fL (80.0-100.0); Mean Platelet Volume 8.5; Monocytes # (A) 0.5 k/uL (0-1.0); Monocytes % (A) 9 %; Neutrophils # (A) 3.5 k/uL (1.3-7.7); Neutrophils % (A) 68 %; Platelet Count 191 k/uL (150-450); RBC 4.76 m/uL (4.30-5.90); WBC 5.2 k/uL (3.8-10.6)
[2020-11-25 12:42] LABS: Calcium 9.9 mg/dL (8.4-10.2); Potassium 4.6 mmol/L (3.5-5.1)
[2020-11-25] MEDS ORDERED: SUCCINYLCHOLINE CHLORIDE VIAL 200 MG/10 ML VIAL IV ONE (14:13)
[2020-11-25] MEDS ORDERED: fentaNYL (PF) 50 MCG/ML 2 ML AMP ONE (14:13)
[2020-11-25] MEDS ORDERED: MIDAZOLAM 2 MG/2 ML VIAL ONE (14:13)
[2020-11-25] MEDS ORDERED: PROPOFOL 10 MG/ML 20 ML VIAL IV ONE (14:13)
[2020-11-25] MEDS ORDERED: PHENYLEPHRINE-0.9% NACL SYG 1,000 MCG/10 ML SYRINGE ONE (14:13)
[2020-11-25] MEDS ORDERED: ePHEDrine SULFATE/0.9% NACL/PF 50 MG/5 ML SYRINGE IV ONE (14:13)
[2020-11-25] MEDS ORDERED: LIDOCAINE 1% INJ 10MG/ML (20 ML MDV) ONE (14:13)
[2020-11-25] MEDS ORDERED: HEPARIN SODIUM,PORCINE 10,000 UNIT/ML 1 ML VIAL ONE (14:13)
[2020-11-25] MEDS ORDERED: PROTAMINE SULFATE 10 MG/ML 5 ML VIAL IV ONE (14:13)
[2020-11-25] MEDS ORDERED: LIDOCAINE 1% INJ 10MG/ML (20 ML MDV) SQ ONE (14:47)
[2020-11-25] MEDS ORDERED: HEPARIN SOD,PORK IN 0.45% NACL 25,000 UNIT in 0.45% NACL 1 250ML.BAG IV ONE (14:54)
[2020-11-25] MEDS ORDERED: IOPAMIDOL-370 100ML BTL INJ ONE (16:12)
--- NOTE | 2020-11-25 16:40 | P.HPCAR ---
History of Present Illness This is Dr. Fiore dictating an H/P on this patient The patient was interviewed and examined IMPRESSION / ASSESSMENT: 60-year-old male patient with recurrent paroxysmal atrial fibrillation, symptomatic associated with presyncope He experiences presyncope while sitting, during A. fib History of CAD NH history of ischemic cardio myopathy and a previous ejection fraction of 40-45% Past history of hypothyroidism which is being treated Sick Sinus Syndrome Left atrium around 4 cm PLAN: Proceed with PVI for A. fib management HPI Patient has symptomatic episodes of atrial fibrillation associated with presyncope Today he denies any angina chest discomfort dizziness lightheadedness shortness of breath orthopnea PND No fever chills ROS: No fever chills or rigors, no cough, phlegm or expectoration, no nausea, vomiting or diarrhea, no hematuria, dysuria, no musculoskeletal complaints, no strokes or seizures, no skin lesions. EXAMINATION: Afebrile 98.1F, pulse rate in the 60s, blood pressure 9906 7 mmHg Normal heart sounds normal S1 normal S2 no murmurs or gallops no rub Breath sounds are clear no rhonchi no crackles Abdomen is soft nontender Extremities warm edema No JVD REVIEW OF LABS, ECG & MEDICAL DATA White count 5.2 thousand, hemoglobin 17, platelet count 191,000 Normal electrolytes normal potassium BUN 26 creatinine 1.36 Coronavirus PCR undetectable Physical Exam Vitals: Vital Signs Temp Pulse Resp BP Pulse Ox 11/25/20 12:26 98.1 F 64 14 99/67 96 Intake and Output 11/25/20 11/25/20 11/25/20 06:59 14:59 22:59 Intake Total 70 Balance 70 Intake: IV 70 Other: Weight 105.9 kg Past Medical History Past Medical History: Atrial Fibrillation, Coronary Artery Disease (CAD), Heart Failure, Deep Vein Thrombosis (DVT), GERD/Reflux, Hyperlipidemia, Myocardial Infarction (NH), Osteoarthritis (OA), Pneumonia, Prostate Disorder, Thyroid Disorder Additional Past Medical History / Comment(s): Ulcerative COLITIS. HX DVT LT ARM. Last Myocardial Infarction Date:: 2011 History of Any Multi-Drug Resistant Organisms: None Reported Past Surgical History: Cholecystectomy, Heart Catheterization With Stent, Hernia Repair, Orthopedic Surgery, Tonsillectomy Additional Past Surgical History / Comment(s): total two cardiac stents, chhaya Hip Surgery x 3 for dislocated hips. Cindy Fundoplication, JAIME, Cardioversionx3. COLONOSCOPY, barrets esophagus with hiatal hernia repair. right ankle broken,gout. Past Anesthesia/Blood Transfusion Reactions: Motion Sickness Additional Past Anesthesia/Blood Transfusion Reaction / Comment(s): n/v with ether as a child Date of Last Stent Placement:: 2013 Smoking Status: Former smoker - Past Family History Father Family Medical History: Deep Vein Thrombosis (DVT), Pulmonary Embolus Additional Family Medical History / Comment(s): . Mother Family Medical History: COPD, Diabetes Mellitus Additional Family Medical History / Comment(s): Colitis Physical Examination Vital Signs Temp Pulse Resp BP Pulse Ox 11/25/20 12:26 98.1 F 64 14 99/67 96 Intake and Output 11/25/20 11/25/20 11/25/20 06:59 14:59 22:59 Intake Total 70 Balance 70 Intake: IV 70 Other: Weight 105.9 kg Results 11/25/20 12:00 11/25/20 12:00 CBC 11/25/20 Range/Units 12:00 WBC 5.2 (3.8-10.6) k/uL RBC 4.76 (4.30-5.90) m/uL Hgb 17.0 (13.0-17.5) gm/dL Hct 46.7 (39.0-53.0) % Plt Count 191 (150-450) k/uL Comprehensive Metabolic Panel 11/25/20 Range/Units 12:00 Sodium 139 (137-145) mmol/L Potassium 4.6 (3.5-5.1) mmol/L Chloride 103 (98-107) mmol/L Carbon Dioxide 25 (22-30) mmol/L BUN 26 H (9-20) mg/dL Creatinine 1.36 H (0.66-1.25) mg/dL Glucose 92 (74-99) mg/dL Calcium 9.9 (8.4-10.2) mg/dL Current Medications Generic Name Dose Route Start Last Admin Trade Name Freq PRN Reason Stop Dose Admin Lactated Ringer's 1,000 mls @ 20 mls/hr 11/25/20 05:57 Lactated Ringers IV 12/25/20 05:58 .Q24H EDU Intake and Output 11/25/20 11/25/20 11/25/20 06:59 14:59 22:59 Intake Total 70 Balance 70 Intake: IV 70 Other: Weight 105.9 kg Patient Weight 11/26/20 06:59 Weight 105.9 kg 11/25/20 12:00 11/25/20 12:00
[2020-11-25] MEDS ORDERED: ACETAMINOPHEN TAB 325 MG TAB PO PRN (16:42)
[2020-11-25] MEDS ORDERED: ACETAMINOPHEN IV (For NPO) 1,000 MG in EMPTY BAG 1 BAG IVPB ONE (17:00)
--- NOTE | 2020-11-25 17:03 | P.EPPROC ---
- EP Procedure Note Electrophysiology Procedure Note: PROCEDURE A. fib ablation/PVI DIAGNOSIS Atrial fibrillation, symptomatic, refractory to therapy Persistent atrial fibrillation Symptomatic with presyncopal spells RESULT No left atrial appendage mass seen on intracardiac echo, intracardiac echo revealed normal LV size and systolic function Successful A. fib ablation/pulmonary vein isolation of all veins using cryo- ablation Complete entrance block in all 4 veins confirmed No evidence for phrenic nerve injury Esophageal deflection YES , left-sided esophagus PROCEDURE DETAILS Patient was brought to the EP lab in a fasting state. Written informed consent was obtained prior to the procedure. Procedure performed under general anesth esia After initial muscle relaxant use, muscle relaxants were not given thereafter in order to assess phrenic nerve during procedure. Patient prepped and draped as per protocol Full cryo-set up with standard preparation of the cryoablation tools done. Femoral Venous access obtained on the right and left groins Venous and arterial Sheaths placed. Diagnostic catheters for the high right atrium, phrenic nerve stimulation and pacing, His bundle, RV and coronary sinus placed Intracardiac echo catheter placed. Long sheath placed in the right atrium Left and right transseptal catheterization performed under intracardiac echo guidance. Intravenous heparin with aCT above 300 Later, catheter positioning and balloon positioning in the left atrium, under intracardiac echo guidance Diagnostic EP study with Drug infusion Coronary sinus pacing and recording Baseline measurements Sinus recovery times at 600 504 100 ms were 924, 930 944 AV node Wenckebach block 320 ms Burst ablation from 4 ms was 200 ms A very brief episode of atrial tachycardia/atrial fibrillation that'll was self- limiting and lasted only for about 10 seconds or so Atrial pacing performed from the high right atrium and the coronary sinus Burst stimulation and straight pacing from the HRA Transseptal catheterization performed RA pressure 12/6/9 LA pressure 15/3/8 Transseptal catheterization performed with standard sheath. The cryoablation sheath was then placed with an over the wire exchange without any acute complications. All 4 pulmonary veins were isolated in the following sequence: Left superior followed by left inferior followed by right superior followed by right inferior The cryo-ablation balloon was placed at the os of each vein 1.5 mL of IV dye was injected to confirm an occluded vein Goal during cryoablation was to achieve complete occlusion of the pulmonary vein, achieve -30 degrees C at 30 seconds and achieve -40 degrees C at 60 seconds and a time to effect of less than 60-90 seconds, . If not the balloon was repositioned to obtain this result After completion of Cryoblation with durations from 180-240 seconds, entrance block was confirmed with the Attain circular catheter in a roving fashion around the antrum of the pulmonary veins Phrenic nerve pacing was performed from the SVC, right innominate vein area and diaphragm voltage was monitored. Diaphragmatic contractions were also monitored manually for strength of contraction. Parameter goals for each cryo freeze Complete occlusion of the appropriate vein -30 degrees C by 30 seconds -40 degrees C by 60 seconds Minimum between minus 40-55 degrees C Thaw time greater than 10 seconds Balloon visualized by intracardiac echo The esophagus was intubated. Esophageal Temperature monitoring with a CIRCA catheter formed. Esophageal deflection for hypothermia of the esophagus below 30 degrees C Left superior pulmonary vein Complete isolation, entrance block Left inferior pulmonary vein Complete isolation, entrance block Right superior pulmonary vein, during phrenic nerve pacing Complete isolation, entrance block Right inferior pulmonary vein, during phrenic nerve pacing Complete isolation, entrance block At the end of the procedure the Achieve catheter was once again used to check for entrance block Phrenic nerve stimulation was performed to confirm diaphragmatic stimulation the end of the procedure Cine fluoroscopy was performed at the very end of the procedure to confirm movement of both diaphragms with inspiration and expiration At the end burst stimulation resulted in a very brief episode of atrial fibr illation/atrial tachycardia that was self-limiting and lasted less than 10 seconds At the end of the procedure the patient was extubated Heparin was reversed Venous sheaths were removed and hemostasis assured PROCEDURES PERFORMED Diagnostic EP study CS pacing and recording Left and right transseptal catheterization Catheter the mapping of the tachycardia (NOT 3D mapping) Intracardiac echocardiography Pulmonary vein isolation with transseptal and comprehensive EPS, [id number] Drug Infusion [id number]
--- NOTE | 2020-11-25 17:06 | P.PRLE ---
RE: Zack Austin Dear Dr. Antoine Mcdowell underwent successful pulmonary vein isolation for the management of atrial fibrillation. He has very sympathetic atrial fibrillation associated with dizziness and presyncope. In addition he has Sick Sinus Syndrome and therefore I'm backing off on the dose of metoprolol to 25 mg twice daily The dose may be reduced even further in the next 6 weeks Currently he is on amiodarone 100 mg by mouth daily and I would elect to stop it after 6 weeks of this ablation He should continue anticoagulation lifelong More importantly previously he had mild ischemic cardiopathy ejection fraction 45%. However intracardiac echocardiography during the A. fib ablation revealed preserved LV systolic function, which is excellent news. His LA and RA pressures are normal Hopefully this will result in a significant reduction in his A. fib episodes Thank you for entrusting me with the care of the patient Warm regards Sincerely Jorge Alberto Fiore
[2020-11-25] MEDS ORDERED: ACETAMINOPHEN IV (For NPO) 1,000 MG/100 ML VIAL IVPB ONE (17:29)
[2020-11-25] MEDS: APIXABAN 5 MG TAB PO SCH (20:04)
[2020-11-25] MEDS: METOPROLOL TARTRATE 25 MG TAB PO SCH (20:04)
[2020-11-25] MEDS: PANTOPRAZOLE 40 MG TABLET PO SCH (20:04)
[2020-11-25] MEDS ORDERED: ATORVASTATIN 20 MG TAB PO SCH (21:00)
[2020-11-26] MEDS ORDERED: LEVOTHYROXINE 75 MCG TAB PO SCH (06:30)
[2020-11-26] MEDS ORDERED: LEVOTHYROXINE 100 MCG TAB PO SCH (06:30)
[2020-11-26] MEDS: PANTOPRAZOLE 40 MG TABLET PO SCH (07:46)
[2020-11-26] MEDS: APIXABAN 5 MG TAB PO SCH (07:48)
[2020-11-26] MEDS: METOPROLOL TARTRATE 25 MG TAB PO SCH (07:50)
[2020-11-26 08:12] VITALS: BP 116/78; PULSE 83; RESP 16; TEMP 98.1
[2020-11-26] MEDS ORDERED: lisinopriL 10 MG TAB PO SCH (09:00)
[2020-11-26] MEDS ORDERED: SPIRONOLACTONE 25 MG TAB PO SCH (09:00)
[2020-11-26] MEDS ORDERED: ASPIRIN 81 MG PO SCH (09:00)
[2020-11-26] MEDS ORDERED: AMIODARONE 100 MG TAB PO SCH (09:00)
[2020-11-26] MEDS ORDERED: FUROSEMIDE 20 MG TAB PO SCH (09:00)
[2020-11-26] MEDS ORDERED: azaTHIOprine 50 MG TAB PO SCH (09:00)
[2020-11-26] MEDS ORDERED: allopurinoL 100 MG TAB PO SCH (09:00)
--- NOTE | 2020-11-26 11:19 | DS ---
DISCHARGE SUMMARY Zack Austin is a 60-year-old male patient with persistent atrial fibrillation which is very symptomatic and is associated with presyncope. He underwent pulmonary vein isolation yesterday successfully. He maintains sinus rhythm. His blood pressure is 117/82 mmHg, pulse rate is in the 70s. Heart rhythm is regular. Twelve-lead EKG is normal. No ST-segment abnormalities. He has mild discomfort in the throat. No chest discomfort at all. He feels a little wobbly in the feet when he walks around, but he is not presyncopal. On examination, heart sounds S1, S2 are normal. No murmurs, no gallop, no rub. Lungs are clear. No rhonchi. No crackles. Abdomen is soft. Groins have healed well. No hematoma. No JVD. IMPRESSION: Persistent atrial fibrillation, status post pulmonary vein isolation. SUGGEST: 1. Continue anticoagulation. 2. Continue amiodarone at a low dose of 100 mg p.o. daily for 6 weeks and then stop. 3. Continue all other cardiac medications. Reduce the dose of metoprolol to 25 mg twice daily. 4. Follow up with Dr. Godfrey in a week. 5. Follow up with Dr. Schultz as previously scheduled. MMODL / IJN: [id number] /
== END 2020-11-26 13:02 | disposition home or self-care (01) ==
LOC: CATHEP 11:43 → 6NMEDSUR 16:28 → CATHEP 11-26 13:02
PROVIDERS: ATTEND Internal Medicine Clinical Cardiac Electrophysiology
DX: I48.0 Paroxysmal atrial fibrillation (principal); I49.5 Sick sinus syndrome; I25.2 Old myocardial infarction; I25.10 Atherosclerotic heart disease of native coronary artery without angina pectoris; E78.5 Hyperlipidemia, unspecified; E03.9 Hypothyroidism, unspecified; I25.5 Ischemic cardiomyopathy; I50.9 Heart failure, unspecified; K21.9 Gastro-esophageal reflux disease without esophagitis; M19.90 Unspecified osteoarthritis, unspecified site; Z83.3 Family history of diabetes mellitus; Z86.718 Personal history of other venous thrombosis and embolism; Z87.891 Personal history of nicotine dependence; Z90.49 Acquired absence of other specified parts of digestive tract; Z95.5 Presence of coronary angioplasty implant and graft
CPT/HCPCS: 93623; 93662; 93609; 93656; 80048; 85025; 87635; C1894 ×2; C1769 ×4; C1760; C1730 ×2; C1759; C1893; C1733; C1766; J7500; J2250; J0330; J2720; J1644 ×2; J2001; J3010; J0131; J2370; J2704; Q9967